=== PATIENT | female | born 1945 | race Caucasian/White ===

== ENCOUNTER 2025-06-09 19:39 | Inpatient (IN) | payer OTHER, MEDICAID ==
[~2025-06-09] VITALS: Ht 154.9 cm; Wt 70.8 kg
[~2025-06-09 19:39] MED LIST: ASPI-605 PO; DIPH25CA83 PO; FURO-145 PO; INSU100C7 SQ; LISI2.5T2 PO; METO50TA16 PO; ROSU20TA2 PO
[2025-06-09] MEDS ORDERED: CEFTRIAXONE 1GM BAG (ER ONLY) 50 ML IV ONE (20:07)
[2025-06-09] MEDS ORDERED: AZITHROMYCIN 500 MG VIAL ONE (20:07)
[2025-06-09] MEDS ORDERED: DILTIAZEM HCL 25 MG IV ONE (20:08)
[2025-06-09] MEDS: DILTIAZEM HCL 50 MG IV IV ONE ×2 (20:11→20:27)
[2025-06-09] MEDS: IV NS 0.9% 500 ML BAG IV ONE (20:14)
[2025-06-09] MEDS: CEFTRIAXONE 1GM BAG (ER ONLY) 50 ML IV ONE (20:14)
[2025-06-09] MEDS: AZITHROMYCIN 500 MG in IV D5W 250 ML IV ONE (20:28)
[2025-06-09 20:30] LABS: PLATELET COUNT (AUTO) 196 K/uL (150-450); RED BLOOD CELL COUNT(AUTO) 5.83 MIL/uL (4.0-5.2); RED CELL DISTRIBUTION WIDTH 16.2 % (11.5-15.0); WHITE BLOOD COUNT (AUTO) 10.3 K/uL (4.3-11.0)
[2025-06-09 20:41] LABS: CALCIUM, SERUM 8.4 mg/dL (8.5-10.1); CREATININE 1.6 mg/dL (0.6-1.3); SODIUM SERUM 146 mmol/L (136-145); UREA NITROGEN, BLOOD 58 mg/dL (7-18)
[2025-06-09 20:44] LABS: INR 1.09 (0.91-1.10)
[2025-06-09 20:46] LABS: ASPARTATE AMINOTRANSFERASE 56 U/L (15-37); TOTAL PROTEIN, SERUM 7.2 g/dL (6.4-8.2)
[2025-06-09 20:50] LABS: LACTIC ACID 2.0 mmol/L (0.4-2.0)
[2025-06-09] MEDS: FUROSEMIDE 40 MG/4 ML VIAL IV ONE (22:01)
[2025-06-09] MEDS ORDERED: EZET10TA16 PO (23:09)
[2025-06-09] MEDS ORDERED: NICO-676 TP (23:09)
[2025-06-09] MEDS ORDERED: FOLI0.8C PO (23:09)
[2025-06-09] MEDS ORDERED: FLUT1BLS IH (23:09)
[2025-06-09] MEDS ORDERED: AMOX-430 PO (23:09)
[2025-06-09] MEDS ORDERED: EMPA25TA PO (23:09)
[2025-06-09] MEDS ORDERED: TRAZ-257 PO (23:09)
[2025-06-09] MEDS ORDERED: METO25TA4 PO (23:09)
[2025-06-09] MEDS ORDERED: INSU100V7 SQ (23:09)
[2025-06-09] MEDS ORDERED: ESCI20TA PO (23:09)
[2025-06-09] MEDS ORDERED: DULO30CA2 PO (23:09)
[2025-06-09] MEDS ORDERED: CLOP75TA15 PO (23:09)
[2025-06-09] MEDS ORDERED: IPRA3AMP23 IH (23:09)
[2025-06-09] MEDS ORDERED: CYAN100096 PO (23:09)
[2025-06-09] MEDS ORDERED: ATOR80TA PO (23:09)
[2025-06-09] MEDS ORDERED: PREG200C PO (23:09)
[2025-06-10] VITALS (7 sets, daily range): BP systolic 114–146; BP diastolic 71–87; TEMP 97.3–98.3; O2SAT 96–98
[2025-06-10 01:09] LABS: BLOOD, URINE TRACE-INTA Ery/uL (NEGATIVE); LEUKOCYTE ESTERASE ,URINE 2+ (NEGATIVE); NITRITE, URINE NEGATIVE (NEGATIVE); UGLUCOSE 3+ mg/dL (NEGATIVE)
[2025-06-10 01:10] LABS: APPEARANCE,URINE SLIGHTLY CLOUDY (CLEAR)
[2025-06-10 01:16] LABS: ADD URINE CULTURE YES; SQUAMOUS EPITHELIAL CELL,UR Moderate /HPF (None Seen)
[2025-06-10] MEDS ORDERED: IPRATROPIUM NEB FS 0.5 MG/2.5 ML AMPUL.NEB NEB PRN (01:30)
[2025-06-10] MEDS ORDERED: ZOLPIDEM TARTRATE 5 MG TABLET PO PRN (01:30)
[2025-06-10] MEDS ORDERED: Medication Not On Formulary EA (Ipratropium/Albuterol Sulfate (Duoneb 2.5-0.5 Mg/3 Ml So IH SCH (01:30)
[2025-06-10] MEDS ORDERED: ACETAMINOPHEN 325 MG TABLET PO PRN (01:30)
[2025-06-10] MEDS ORDERED: DEXTROSE 50%-WATER 50 ML DISP.SYRIN IV PRN (01:30)
[2025-06-10] MEDS ORDERED: MAG HYDROX/AL HYDROX/SIMETH 30 ML UDC PO PRN (01:30)
[2025-06-10] MEDS ORDERED: ONDANSETRON HCL/PF 4 MG/2 ML VIAL IVP PRN (01:30)
[2025-06-10] MEDS ORDERED: ALBUTEROL HALF STRENGTH 1.25 MG/3 ML VIAL.NEB NEB PRN (01:30)
[2025-06-10] MEDS ORDERED: MAGNESIUM HYDROXIDE 30 ML UDC PO PRN (01:30)
[2025-06-10] MEDS ORDERED: Z GUARD REMEDY 4 OZ OINT TP PRN (01:30)
[2025-06-10] MEDS ORDERED: DIGOXIN INJ 0.5 MG/2 ML AMPUL ONE (03:57)
[2025-06-10] MEDS: DIGOXIN INJ 0.5 MG/2 ML AMPUL IV ONE (04:00)
[2025-06-10] MEDS: BLOOD SUGAR DIAGNOSTIC 1 EACH STRIP VI SCH (06:24)
[2025-06-10] MEDS: INSULIN REGULAR, HUMAN 100 UNIT/ML 3 ML VIAL SQ PRN (06:25)
[2025-06-10] MEDS: ESCITALOPRAM OXALATE (10 MG) 10 MG TABLET PO SCH (08:20)
[2025-06-10] MEDS: PREGABALIN 100 MG CAPSULE PO SCH (08:20)
[2025-06-10] MEDS: CYANOCOBALAMIN 500 MCG TABLET PO SCH (08:20)
[2025-06-10] MEDS: ASPIRIN EC 81 MG TABLET.DR PO SCH (08:20)
[2025-06-10] MEDS: DULOXETINE HCL 30 MG CAPSULE.DR PO SCH (08:20)
[2025-06-10] MEDS: CLOPIDOGREL BISULFATE 75 MG TABLET PO SCH (08:21)
[2025-06-10] MEDS: EZETIMIBE 10 MG TABLET PO SCH (08:21)
[2025-06-10] MEDS: FOLIC ACID 1 MG TABLET PO SCH (08:21)
[2025-06-10] MEDS: NICOTINE PATCH (14MG) 14 MG PATCH.TD24 TD SCH (08:29)
[2025-06-10] MEDS: METOPROLOL SUCCINATE 25 MG TAB.SR.24H PO SCH (08:29)
[2025-06-10] MEDS: EMPAGLIFLOZIN 25 MG TABLET PO SCH (09:00)
[2025-06-10] MEDS ORDERED: METOPROLOL SUCCINATE 25 MG TAB.SR.24H PO SCH (09:00)
[2025-06-10] MEDS: PIPERACILLIN /TAZOBACTAM 2.25 G in IV D5W 50 ML IV SCH (12:36)
[2025-06-10] MEDS: FLUTICASONE/VILANTEROL 1 EACH BLST.W.DEV IH SCH (13:03)
[2025-06-10 16:38] LABS: CALCIUM, SERUM 8.3 mg/dL (8.5-10.1); CREATININE 1.5 mg/dL (0.6-1.3); SODIUM SERUM 143.0 mmol/L (136-145); UREA NITROGEN, BLOOD 47.0 mg/dL (7-18)
[2025-06-10] MEDS ORDERED: CEFTRIAXONE 1 G in IV D5W 50 ML IV SCH (20:00)
[2025-06-10] MEDS: ATORVASTATIN 40 MG TABLET PO SCH (21:43)
[2025-06-10] MEDS: TRAZODONE 50 MG TABLET PO SCH (21:43)
[2025-06-10] MEDS: *INSULIN REGULAR(HUMULIN R)HUM 100 UNIT/ML VIAL SQ PRN (21:47)
[2025-06-10] MEDS ORDERED: INSULIN GLARGINE, 100 UNIT/ML CARTRIDGE SQ SCH (22:00)
== END 2025-06-10 22:49 | disposition short-term general hospital (02) | DRG 280 ==
LOC: ER 19:58 → TELE 06-10 00:50
PROVIDERS: ADMIT Internal Medicine; ATTEND Internal Medicine
DX: I47.19 Other supraventricular tachycardia (principal); I50.23 Acute on chronic systolic (congestive) heart failure; I21.A1 Myocardial infarction type 2; J96.01 Acute respiratory failure with hypoxia; N17.9 Acute kidney failure, unspecified; N39.0 Urinary tract infection, site not specified; J44.1 Chronic obstructive pulmonary disease with (acute) exacerbation; I13.0 Hypertensive heart and chronic kidney disease with heart failure and stage 1 through stage 4 chronic kidney disease, or unspecified chronic kidney disease; N18.30 Chronic kidney disease, stage 3 unspecified; E11.51 Type 2 diabetes mellitus with diabetic peripheral angiopathy without gangrene; F32.9 Major depressive disorder, single episode, unspecified; I70.244 Atherosclerosis of native arteries of left leg with ulceration of heel and midfoot; L97.429 Non-pressure chronic ulcer of left heel and midfoot with unspecified severity; Z95.1 Presence of aortocoronary bypass graft; E11.40 Type 2 diabetes mellitus with diabetic neuropathy, unspecified; E78.5 Hyperlipidemia, unspecified; I25.10 Atherosclerotic heart disease of native coronary artery without angina pectoris; Z79.4 Long term (current) use of insulin; Z87.891 Personal history of nicotine dependence; Z88.2 Allergy status to sulfonamides; Z20.822 Contact with and (suspected) exposure to COVID-19; I45.10 Unspecified right bundle-branch block; I25.5 Ischemic cardiomyopathy; E11.21 Type 2 diabetes mellitus with diabetic nephropathy
CPT/HCPCS: 36415; 71045-TC; 80048-TC; 80076-TC; 81001; 82962-TC; 83605-TC; 83880; 84484-TC; 85025-TC; 85730-TC; 87040-TC; 87081-TC; 87086-TC; A4223; G0378; J0456; J0696; J1160; J1815; J1938; J2543; J2919; J3490; J7040; J7050; J7060